=== PATIENT | male | born 1975 | race Caucasian/White ===

== ENCOUNTER 2022-11-05 14:57 | Emergency (ER) | payer BC, SELFPAY ==
--- NOTE | ~2022-11-05 | XR_ITS ---
EXAMINATION: XR chest 2V DATE: 11/05/2022 15:42 INDICATION: Dyspnea. Multiple left-sided rib fractures. TECHNIQUE: PA and lateral views of the chest were obtained. COMPARISON: None FINDINGS: Opacities at the left mid to lower lung zone corresponding to a small left pleural effusion with asso ciated compressive atelectasis versus less likely pneumonia. Is also a very small right pleural effus ion with blunting at the posterior sulcus. No pulmonary edema or pneumothorax. Borderline heart size. Minimally displaced lateral left sixth rib fracture. IMPRESSION: 1. Small left and very small right pleural effusions with associated basilar atelectasis versus less likely pneumonia. When 2. Borderline heart size. 3. Minimally displaced lateral left sixth rib fracture. Reviewed, dictated and finalized at location A. IMPRESSION: 1. Small left and very small right pleural effusions with associated basilar at electasis versus less likely pneumonia. When 2. Borderline heart size. 3. Minimally displaced lateral left sixth rib fracture.
[2022-11-05 15:01] VITALS: BP 137/75; PULSE 83; RESP 17; TEMP 36.6; O2SAT 95
[2022-11-05 15:29] VITALS: PULSE 78
[2022-11-05 15:46] LABS: Basophils Percent Auto 0.5 % (0.2-1.2); Eosinophils Absolute Auto 0.3 K/mm3 (0-0.3); Eosinophils Percent Auto 3.2 % (0-4.4); Hematocrit 46.1 % (42.0-52.0); Hemoglobin 15.1 g/dL (14.0-18.0); Immature Granulocyte Absolute 0.12 K/mm3 (0.00-0.031); Immature Granulocyte Percent A 1.5 % (0-0.5); Lymphocytes Absolute Auto 1.83 K/mm3 (0.9-3.2); Lymphocytes Percent Auto 22.4 % (18.3-44.2); Mean Corpuscular HGB Conc 32.8 g/dl (32-36); Mean Corpuscular Hemoglobin 30.8 pg (26-34); Mean Corpuscular Volume 93.9 fl (80-100); Mean Platelet Volume 9.2 fl (7.4-10.4); Monocytes Absolute Auto 0.9 K/mm3 (0.1-0.6); Monocytes Percent Auto 10.9 % (2.6-8.5); Neutrophils Percent Auto 61.5 % (45.5-73.1); Platelet Count Result 210 k/mm3 (150-375); Red Blood Count 4.91 M/mm3 (4.6-6.20); Red Cell Distribution Width 12.9 % (11.5-14.5); White Blood Count 8.2 K/mm3 (4.5-10.0)
[2022-11-05] MEDS: METHYLNALTREXONE 12 MG/0.6 ML VIAL SUB-Q (15:48)
[2022-11-05 15:52] VITALS: BP 126/76; PULSE 75; RESP 16; O2SAT 96
[2022-11-05 15:55] LABS: Alanine Aminotransferase 238 U/L (6-50); Albumin Level 4.2 g/dL (3.5-5.1); Alkaline Phosphatase 168 U/L (38-126); Anion Gap 12 mmol/L (8-16); Aspartate Amino Transferase 106 U/L (17-59); Bilirubin,Total 0.4 mg/dL (0.2-1.3); Blood Urea Nitrogen 18 mg/dL (9-20); Calcium 9.1 mg/dL (8.4-10.2); Carbon Dioxide 27 mmol/L (22-30); Chloride 97 mmol/L (98-107); Estimated CRCL calculation 96 ml/min; Estimated Glomerular Filt Rate > 60; Glucose 97 mg/dL (65-110); Lipase 54 U/L (23-300); Potassium 4.4 mmol/L (3.4-5.0); Sodium 136 mmol/L (137-145)
[2022-11-05 15:56] LABS: Prothrombin Time 13.1 Seconds (11.1-14.7)
[2022-11-05 15:57] LABS: Partial Thromboplastin Time 28.5 SECONDS (22.3-36.8)
[2022-11-05] MEDS: SODIUM CHLORIDE 0.9% IV 1,000 ML 999 ML IV CONT (16:05)
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
[2022-11-05 17:53] VITALS: BP 138/91; PULSE 72; RESP 16; O2SAT 97
== END 2022-11-05 17:55 | disposition home or self-care (01) ==
PROVIDERS: Emergency Provider Emergency Medicine; PCP Registered Nurse
DX: K59.00 Constipation, unspecified (principal); S22.32XD Fracture of one rib, left side, subsequent encounter for fracture with routine healing; R74.01 Elevation of levels of liver transaminase levels; E78.5 Hyperlipidemia, unspecified; Z79.891 Long term (current) use of opiate analgesic; V19.88XD Pedal cyclist (driver) (passenger) injured in other specified transport accidents, subsequent encounter
CPT/HCPCS: 36415; 71046; 80053; 83690; 85025; 85610; 85730; 96360; 96372; 99283; J2212; J7030